=== PATIENT | male | born 1950 | race Caucasian/White ===

== ENCOUNTER 2020-02-03 17:00 | Inpatient (IN) | payer OTHER ==
[~2020-02-03] VITALS: Ht 177.8 cm; Wt 95.3 kg
[2020-02-03] MEDS ORDERED: PLAQUENIL200 MG PO (17:59)
[2020-02-03] MEDS ORDERED: ACCUPRIL40 MG PO (18:00)
[2020-02-03] MEDS ORDERED: BAYER CHEWABLE81 MG PO (18:02)
[2020-02-03] MEDS ORDERED: FLOMAX0.4 MG PO (18:03)
[2020-02-03] MEDS ORDERED: BYSTOLIC10 MG PO (18:03)
[2020-02-03 18:12] LABS: HEMATOCRIT 41.4 % (42.0-52.0); MCH 30.3 pg (26.0-34.0); MCHC 33.8 g/dL (28.0-37.0); MCV 89.7 fL (80.0-100.0); RBC 4.62 mil/uL (4.50-6.00); RDW 12.6 % (10.5-14.5); WBC 7.2 thou/uL (4.0-11.0)
[2020-02-03 18:25] LABS: CALCIUM 8.6 mg/dL (8.5-10.1); POTASSIUM 3.9 mmol/L (3.5-5.1)
[2020-02-03 18:32] LABS: ALBUMIN 3.3 g/dL (3.4-5.0); TOTAL BILIRUBIN 0.3 mg/dL (<0.1-1.0); TOTAL PROTEIN 6.7 g/dL (6.4-8.2)
--- NOTE | 2020-02-03 19:22 | NUR ---
DIRECT ADMIT FROM [facility] FOR TIGHTNESS OF CHEST. ADMITTED BY DR PARKS FOR CHEST PAIN. PATIENT ARRIVED WITH HEPARIN DRIP. HEPARIN STOPPED.PER REPORT FROM SHARON VILLANUEVA FOR [facility] PT WAS GIVEN HEPARIN BOLUS AND DRIP AT [facility]. 4 BABY ASA, AND 1 INCH NITRO PASTE. PATIENT TEST FOR COVID-19 AT [facility] ON 02/01/20. ALERT X4 FROM HOME WITH NIDA. PT DENIES CHEST PAIN, PT C/O OF SLIGHT SHORTNESS OF BREATH. UP AB [place] IN ROOM.CONTINENT OF BLADDER LAST BM 02/01/20. TOLERATING DIET. NSR ON TELE. FLUIDS ADMINISTERED ORDERED. CONSENTS SIGNED. ADMISSION ASSESMENT AND HISTORY COMPLETED. HOME MEDS RECONSILED. REPORT GIVEN TO NIGHT NURSE.
[2020-02-03 19:46] VITALS: BP 104/58
[2020-02-04] VITALS (8 sets, daily range): BP systolic 96–121; BP diastolic 60–79
--- NOTE | 2020-02-04 04:05 | NUR ---
Pt. slept fair during the night. Denies any chest pain.Tolerating room air well with O2 sat in the upper 90's.Reported shortness of breath with exertion. Up ad trudy in room with steady gait. Cardiology consult called to answering service last night. Continue on isolation to R/O COVID 19. Afebrile. Will continue to monitor.
[2020-02-04 06:32] LABS: HEMATOCRIT 36.3 % (42.0-52.0); HEMOGLOBIN 12.4 gm/dL (14.0-18.0); MCH 30.5 pg (26.0-34.0); MCHC 34.1 g/dL (28.0-37.0); MCV 89.4 fL (80.0-100.0); RBC 4.05 mil/uL (4.50-6.00); RDW 12.6 % (10.5-14.5); WBC 6.5 thou/uL (4.0-11.0)
[2020-02-04 06:43] LABS: CALCIUM 8.1 mg/dL (8.5-10.1); CREATININE 0.8 mg/dL (0.7-1.3)
--- NOTE | 2020-02-04 15:51 | NUR ---
PT ASSUMED AT 0700, PT AWAKE AND PLEASANT. ALERT AND OREINTED X4, NO SIGNS OF DISTRESS NOTED. PT DENIES ANY CHEST PAIN, ASSESMMENT COMPLETED. PT DENIES ANY NEEDS, CALL LIGHT IN REACH, BED AT LOWEST LEVEL WITH ALARM ON. WILL CONTINUE TO MONITOR.
--- NOTE | 2020-02-05 03:04 | NUR ---
SPOKE WITH MANAGER EDUCATION AT [facility]. NO RESULTS YET TO STATUS OF COVID-19 SWAB. DID PROVIDE TELEPHONE NUMBER AND FAX NUMBER TO CONTACT US SHOULD RESULTS BE CALLED TO THEIR LAB INSTEAD OF [facility].
[2020-02-05 04:55] VITALS: BP 127/80
--- NOTE | 2020-02-05 05:53 | NUR ---
PT MAKING SLOW PROGRESS TOWARDS GOALS. ON ROOM AIR THROUGHOUT THE NIGHT. DENIES ANY SOA WHILE BEING UP TO THE TOILET. HAS DENIED ANY CHEST PAIN OVERNIGHT. "BUT THERE IS SOMETHING THERE, I CAN FEEL IT THAT SOMETHING JUST DOESN'T FEEL RIGHT." ENCOURAGED TO CALL WITH ANY AXIETY OR ANY SENSE OF IMPENDING DOOM.
[2020-02-05 08:00] VITALS: BP 139/99
--- NOTE | 2020-02-05 09:33 | NUR ---
PT CARE ASSUMED AT 0700, PT ALERT AND OREINTED X4, DENIES CHEST PAIN, NAUSEA AND VOMITING. NO SIGNS OF DISTRESS NOTED. DYSPNEA WITH EXERTION. ASSESSMENT COMPLETED. PT EATING BREAKFAST AT THE MOMENT. DENIES ANY NEEDS. CALL LIGHT AND TABLE IN REACH. BED AT LOWEST LEVEL. WILL CONTINUE TO MONITOR.
[2020-02-05 09:58] LABS: CHOLESTEROL 80 mg/dL (<200); HDL CHOLESTEROL 24 mg/dL (>40); LDL CHOLESTEROL 42 mg/dL (<100); TC:HDL 3.3 Ratio (Not establshd); TRIGLYCERIDE 73 mg/dL (<150); VLDL 15 mg/dL (<40)
--- NOTE | 2020-02-05 11:16 | NUR ---
1030 [facility] laboratory called about pt COVID19 results, was told results not in yet and normally their results dont get in until 8-9 days
[2020-02-05 11:48] VITALS: BP 131/73
--- NOTE | 2020-02-05 16:32 | NUR ---
INITIAL ASSESSMENT: SW reviewed chart and spoke with attending physician. Pt was transferred to [facility] from [facility] due to NStemi/elevated troponin. Cardiology is consulted and following. Pt will need an echo/angio when COVID-19 screen is negative. Pt may need a cardiac cath. SW attempted to contact pt in room to obtain assessment info. Per chart, pt is alert/orientated x 4. Pt lives with his in [place]. NORAH is following to assist as needed with discharge planning.
[2020-02-05 17:11] VITALS: BP 144/71
[2020-02-05 19:25] VITALS: BP 154/87
[2020-02-06 05:21] VITALS: BP 128/79
--- NOTE | 2020-02-06 06:31 | NUR ---
PT MAKING PROGRESS TOWARDS GOALS. PTINITIALLY REPORTED 1/10 LEFT CHEST TIGHTNESS THAT OCCURED WITH ACITIVITY (UP TO USE THE BATHROOM). HE DID STATE THAT THE DISCOMFORT RECEEDS PROMPTLY WITH REST. "I JUST THINK THAT SOMETHING IS WRONG." HAS DENIED ANY SOA.
[2020-02-06 07:42] VITALS: BP 132/83
--- NOTE | 2020-02-06 11:06 | NUR ---
PT CARE ASSUMED AT 0700, PT ALERT AND ORIENTED X4, DENIES NAUSEA, VOMITING AND CHEST PAIN. PT COMPLAINS OF CHEST TIGHTNESS/PRESSURE WHEN UP TO THE BATHROOM. DR. PARKS MADE AWARE. PT DENIES ANY OTHER NEEDS AT THIS TIME. CALL LIGHT AND TABLE WITH REACH. BED TA LOWEST LEVEL. WILL CONTINUE TO MONITOR.
--- NOTE | 2020-02-06 12:01 | NUR ---
PT TRANSFERED TO ICU, ROOM 240. ALL BELONGINGS PACKED AND WITH PT.
[2020-02-06 12:07] VITALS: BP 136/73
--- NOTE | 2020-02-06 13:03 | NUR ---
SW reviewed chart and spoke with nursing and attending physician. Pt had COVID-19 test ordered yesterday. Pt was previously tested at [facility] on 01/31. SW notified by nursing that pt's results from [facility] are positive for COVID-19. Pt transferred to ICU. NORAH is following to assist as needed with discharge planning.
[2020-02-06 16:16] VITALS: BP 118/64
[2020-02-06 20:45] VITALS: BP 95/49
[2020-02-06 20:47] VITALS: BP 102/47
[2020-02-07 00:58] VITALS: BP 131/69
[2020-02-07 04:07] VITALS: BP 116/59
--- NOTE | 2020-02-07 04:55 | NUR ---
1900. PT ALERT AND ORIENTED. VSS WITH OCCASIONALLY SOFT PRESSURES. NO FEVER , NO NAUSEA OR VOMITING REPORTED. PT DENIES ANY CHEST PAIN OR SOB. VOIDING TO THE BATHROOM; STEADY GAIT. SR TO SB ON THE MONITOR WHEN ASLEEP. PT ALSO DESATS WHEN SLEEPING. PT HX OF SLEEP APNEA AND STATED, " MY TELLS ME I STOP BREATHING SOMETIMES WHEN SLEEPING." PT OTHERWISE DENIES ANY HX OF . O2 3L NC INITIATED. SATS MAINTAINED > 98. NO FURTHER ISSUE AT THIS TIME. ISOLATION FOR COVID+ MAINTAINED. UPDATE ON PATIENTS CONDITION LAST NIGHT. WILL CONTINUE TO FOLLOW POC.
[2020-02-07 06:05] LABS: HEMATOCRIT 29.7 % (42.0-52.0); HEMOGLOBIN 10.2 gm/dL (14.0-18.0); MCH 30.8 pg (26.0-34.0); MCHC 34.4 g/dL (28.0-37.0); MCV 89.7 fL (80.0-100.0); RBC 3.31 mil/uL (4.50-6.00); RDW 12.2 % (10.5-14.5); WBC 7.1 thou/uL (4.0-11.0)
[2020-02-07 06:18] LABS: CALCIUM 7.8 mg/dL (8.5-10.1); CREATININE 0.8 mg/dL (0.7-1.3); POTASSIUM 3.7 mmol/L (3.5-5.1)
[2020-02-07 08:56] VITALS: BP 116/55
[2020-02-07 12:46] VITALS: BP 108/63
--- NOTE | 2020-02-07 18:47 | NUR ---
ASSESSMENTS AND INTERVENTIONS DOCCUMENTED. NO MAJOR CHANGES THROUGH OUT SHIFT. PATIENT UP ADLIB NEEDING MINIMAL ASSISTANCE. PATIENT PROGRESSING TOWARDS GOALS EVIDENCE BY INCREASED MOBILITY AND APETITIE. CARDIOLOGY NOT INTERVENING AT THIS TIME.
[2020-02-07 20:50] VITALS: BP 113/62
[2020-02-08 00:14] VITALS: BP 138/72
[2020-02-08 04:25] VITALS: BP 162/84
--- NOTE | 2020-02-08 05:00 | NUR ---
ASSUMED PT CARE AT 1900. PT IS ALERT AND ORIENTED. PT IS LAYING IN BED. NO SIGN OF DISTRESS NOTED IN PT. DENIES ANY PAIN. PT IS STABLE. VITAL SIGNS STABLE. ASSESSMENT COMPLETED AND DOCUMENTED. ISOLATION IN PLACE. SCHEDULED MEDS ADMINISTERED TO PT. PT IS AFEBRILE. CONTINUE TO MONITOR PT. DENIES ANY FURTHER NEEDS AT THIS TIME.
[2020-02-08 05:28] LABS: HEMOGLOBIN 11.3 gm/dL (14.0-18.0); MCH 30.3 pg (26.0-34.0); MCHC 34.2 g/dL (28.0-37.0); MCV 88.7 fL (80.0-100.0); RBC 3.72 mil/uL (4.50-6.00); RDW 12.2 % (10.5-14.5); WBC 6.9 thou/uL (4.0-11.0)
[2020-02-08 05:36] LABS: CREATININE 0.8 mg/dL (0.7-1.3); POTASSIUM 3.8 mmol/L (3.5-5.1)
[2020-02-08 08:14] VITALS: BP 148/70
[2020-02-08] MEDS ORDERED: IMDUR 30 MG TAB30 M1 PO (11:00)
[2020-02-08] MEDS ORDERED: LIPITOR40 MG PO (11:00)
[2020-02-08] MEDS ORDERED: LEVAQUIN 750 M750 MG PO (11:01)
[2020-02-08 11:17] VITALS: BP 148/70
[2020-02-08 11:27] VITALS: BP 132/63
--- NOTE | 2020-02-08 11:29 | NUR ---
discussed during los, pt will dc home today and need to self quarantine. he asymptomatic of covid 19, which he tested positive for. follow up with cardiology in about 3 weeks. cm left message from bedside nurse. will cont following as needed for dc needs.
--- NOTE | 2020-02-08 12:33 | NUR ---
PT DC TO HOME WILL COURATIN AT HOME DISCHARGE INSTRUCTIONS GIVEN PER NURSING VERBALZIE UNDERSTANDING. 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 ALL BELONGING WITH PT PRIOR TO DISCHARGE. NO CONCERNS OR ISSUES NOTED AT THIS TIME
== END 2020-02-08 13:20 | disposition home or self-care (01) | DRG 177 ==
LOC: 3W 17:00 → ICU 02-06 12:39
PROVIDERS: Hospitalist; Internal Medicine Cardiovascular Disease; ADMIT Hospitalist
DX: U07.1 COVID-19 (principal); J12.89 Other viral pneumonia; I25.10 Atherosclerotic heart disease of native coronary artery without angina pectoris; R79.89 Other specified abnormal findings of blood chemistry; R07.9 Chest pain, unspecified; R06.02 Shortness of breath; I10 Essential (primary) hypertension; Z79.82 Long term (current) use of aspirin; Z79.899 Other long term (current) drug therapy; Z95.5 Presence of coronary angioplasty implant and graft; Z79.2 Long term (current) use of antibiotics
CPT/HCPCS: 10078; 10779; 10879

== ENCOUNTER → 2020-03-01 | Outpatient (CLI) | payer OTHER ==
[~2020-03-01] MED LIST: ACCUPRIL40 MG PO; BAYER CHEWABLE81 MG PO; BYSTOLIC10 MG PO; FLOMAX0.4 MG PO; IMDUR 30 MG TAB30 M1 PO; LEVAQUIN 750 M750 MG PO; LIPITOR40 MG PO; PLAQUENIL200 MG PO
== END ==
LOC: SJCVCIMAG 13:26
DX: I35.8 Other nonrheumatic aortic valve disorders (principal); R00.1 Bradycardia, unspecified; I25.10 Atherosclerotic heart disease of native coronary artery without angina pectoris; I10 Essential (primary) hypertension; E78.00 Pure hypercholesterolemia, unspecified; R53.83 Other fatigue; E78.5 Hyperlipidemia, unspecified; Z79.82 Long term (current) use of aspirin; Z79.899 Other long term (current) drug therapy; Z87.891 Personal history of nicotine dependence; Z95.5 Presence of coronary angioplasty implant and graft

== ENCOUNTER 2020-03-11 06:35 | Inpatient (IN) | payer OTHER ==
[~2020-03-11] VITALS: Ht 172.7 cm; Wt 93.0 kg
--- NOTE | ~2020-03-11 | H ---
[facility] [place] [address] HISTORY AND PHYSICAL Name: SARTHAK HILL Room #: REG GARRY Gallegos.#: [id number] Admission: 03/11/20 Attend Phys: Damaso Davidson MD, Discharge: Date of : 52 Report #: [id number] THIS REPORT FOR: cc: Kiko Millard MD,Damaso Rose MD, MD [facility] ~ CC: Kiko Darby MD DATE OF SERVICE: 03/11/2020 HISTORY OF PRESENT ILLNESS: The patient is a 69-year-old male well known to myself. He is admitted today for right and left heart catheterization. He had been diagnosed over a month ago with the COVID virus, was hospitalized here and then since tested negative x 2. He was not "very sick" with this and he has short time in the hospital, has done well since, but having some stable anginal symptoms. His tells a slightly different story that he is having more angina than he would admit to and has not had the energy that he once had, this is unrelated, appears to his prior infection. No fever or chills. He did have a slight bump in the troponin at his hospitalization last month, but we did not evaluate that further, wanted him to recover from the virus. He has been maintained on aspirin, atorvastatin, iron, Plaquenil, quinapril and Bystolic 20. PAST MEDICAL HISTORY: Positive for coronary artery disease, emergent stents placed to the circumflex in 2005, hypertension, hypercholesterolemia, DJD, vasectomy, a prior smoker. SOCIAL HISTORY: He is retired. He is . Prior tobacco. Prior alcohol, no drug use. FAMILY HISTORY: Positive for premature coronary artery disease. ALLERGIES: No known drug allergies. PHYSICAL EXAMINATION: VITAL SIGNS: Pulse was 70s, blood pressure 160/80s. HEENT: Eyes reveal xanthelasmas. Pharynx is clear. NECK: Shows preserved upstrokes without JVD or bruits. LUNGS: Slightly prolonged expiratory phase, but clear. CARDIOVASCULAR: Regular rate and rhythm, S1, S2. ABDOMEN: Soft. No HSM or abdominal bruit. EXTREMITIES: Reveal diminished pulses, but intact. NEUROLOGIC: Nonfocal. SKIN: Warm and dry. There are some eczematous changes on his face with slight malar rash noted. No ulcers. [facility] [address] [place] [address] HISTORY AND PHYSICAL Name: SARTHAK HILL Alvaro Room #: HARRY CASTAÑEDA Alonzo#: [id number] Admission: 03/11/20 Attend Phys: Damaso Davidson MD, Discharge: Date of : 52 Report #: [id number] ASSESSMENT: 1. Coronary artery disease, cardiac catheterization today reveals significant 3-vessel coronary artery disease. He is with significant proximal calcification. He is going to be best served with bypass surgery for revascularization. 2. Hypertension. 3. Hypercholesterolemia. 4. Degenerative joint disease. 5. Status post COVID infection with negative tests x 2. 6. Chronic obstructive pulmonary disease with prior tobacco use. RECOMMENDATIONS AND PLAN: The patient will be transferred to CCU. We will obtain a stent. We will obtain carotid Doppler and proceed on with revascularization by bypass in the next day or two. CV surgical consultation. I have discussed with Dr. Adler and the patient's . Thank you for asking me to assist in the care of this patient. By: 1150 [id number] Damaso Davisdon MD, FACC /nt
[2020-03-11 07:24] VITALS: BP 156/75
[2020-03-11] MEDS ORDERED: ASA81BEC PO (07:33)
[2020-03-11] MEDS ORDERED: LIPITOR20 MG PO (07:33)
[2020-03-11] MEDS ORDERED: PLAQUENIL200 MG PO (07:34)
[2020-03-11] MEDS ORDERED: ACCUPRIL40 MG PO (07:34)
[2020-03-11] MEDS ORDERED: FERGON270 MG PO (07:34)
[2020-03-11] MEDS ORDERED: BYSTOLIC10 MG PO (07:35)
[2020-03-11 12:45] VITALS: BP 139/119
--- NOTE | 2020-03-11 13:28 | HC ---
[facility] [place] [address] CONSULTATION Name: SARTHAK HILL Room #: 206-P ADM IN M.R.#: [id number] Admission: 03/11/20 Attend Phys: Damaso Davidson MD, Discharge: Date of : 52 Report #: [id number] THIS REPORT FOR: cc: Kiko Millard MD,Kiko Adler,Juan Salinas MD ~ CC: Kiko Davidson DATE OF SERVICE: 03/11/2020 We were asked to see the patient by Dr. Davidson. HISTORY OF PRESENT ILLNESS: The patient is a 69-year-old who had coronavirus. The patient was hospitalized with progressive chest pain and shortness of breath. He also had an elevated troponin. The patient had fever and fatigue. He was treated for COVID-19 with Plaquenil and azithromycin and since treatment has had 2 negative tests, the last testing approximately 2 weeks ago according to the patient. Today, the patient has a cardiac catheterization that shows important LAD and circumflex stenosis. The patient has a previous stent in the circumflex that has 80% lesion and that there is also 90% LAD stenosis, right coronary has trivial disease. Left ventricular function is satisfactory. PAST MEDICAL HISTORY: Significant for hypertension. The patient was also treated for hyperlipidemia. He is a former smoker. MEDICATIONS: Include aspirin, atorvastatin, iron, hydroxychloroquine, quinapril, Bystolic. ALLERGIES: None known. SOCIAL HISTORY: As mentioned, former smoker. The patient is retired, lives with his in the [facility]. REVIEW OF SYSTEMS: GENERAL: As mentioned, has some fatigue and shortness of breath, previous fever with the COVID. Deaf in the right ear. RESPIRATORY: Short of breath with the COVID, better now. CARDIAC: Chest heaviness with COVID, better now. No palpitations. GASTROINTESTINAL: No nausea, vomiting, or diarrhea. GENITOURINARY: No urgency, frequency, or blood. MUSCULOSKELETAL: No bone or joint pain. SKIN: No rash or infection. NEUROLOGIC: No motor or sensory dysfunction. [facility] [address] [place] [address] CONSULTATION Name: SARTHAK HILL Alvaro Room #: 206-[facility] IN M.R.#: [id number] Admission: 03/11/20 Attend Phys: Damaso Davidson MD, Discharge: Date of : 52 Report #: [id number] ENDOCRINE: No hot or cold intolerance. No goiter, no tremor. HEMATOLOGIC: No bruisability or bleeding. PHYSICAL EXAMINATION: VITAL SIGNS: Blood pressure 151/73, heart rate 62, O2 sat 93 on room air. HEENT: No scleral icterus, no arcus. NECK: No mass, no bruit. CHEST: Clear to auscultation. HEART: Rhythm regular. ABDOMEN: Soft. EXTREMITIES: No clubbing, cyanosis or edema. VASCULAR: No obvious saphenous vein problems, 2+ dorsalis pedis pulses bilaterally. NEUROLOGIC: No motor or sensory dysfunction. MUSCULOSKELETAL: No bone or joint asymmetry or deformity. PSYCHIATRIC: Shows insight into problem. ASSESSMENT: The patient has severe left anterior descending and circumflex coronary artery disease with preserved ventricular function. Risks and details of the surgery for this were discussed. Risks include but are not limited to bleeding, infection, anesthesia risks, heart and lung problems, stroke and . Options and alternatives were reviewed. The patient understands all of this and wishes to proceed. We will arrange for surgery later this week. Thank you for the consult. <ELECTRONICALLY SIGNED> By: Juan Adler MD 03/11/20 1328 1149 1250 Juan Adler MD /nt
[2020-03-11 13:58] LABS: ABSOLUTE NEUTROPHILS 3.3 thou/uL (1.4-8.2); BASOPHILS 0.9 % (0.0-2.0); EOSINOPHILS 5.1 % (0.0-3.0); HEMATOCRIT 39.4 % (42.0-52.0); HEMOGLOBIN 13.4 gm/dL (14.0-18.0); LYMPHOCYTES 41.2 % (24.0-44.0); MCH 31.1 pg (26.0-34.0); MCHC 34.1 g/dL (28.0-37.0); MCV 91.1 fL (80.0-100.0); MONOCYTES 8.8 % (1.0-8.0); PLATELET COUNT 255 thou/uL (150-400); RBC 4.32 mil/uL (4.50-6.00); RDW 13.5 % (10.5-14.5); WBC 7.5 thou/uL (4.0-11.0)
[2020-03-11 14:13] LABS: CALCIUM 8.5 mg/dL (8.5-10.1); CREATININE 0.9 mg/dL (0.7-1.3); POTASSIUM 3.3 mmol/L (3.5-5.1)
[2020-03-11 14:16] LABS: APTT 27.8 Seconds (24.5-32.8); INR 1.1; PROTIME 10.9 Seconds (9.3-11.4)
[2020-03-11 14:21] LABS: ALBUMIN 3.8 g/dL (3.4-5.0); TOTAL BILIRUBIN 0.7 mg/dL (<0.1-1.0); TOTAL PROTEIN 7.5 g/dL (6.4-8.2)
--- NOTE | 2020-03-11 15:06 | NUR ---
PT ADMITED FROM [facility]. ADMISSION HX AND ASSESSMENT COMPLETED. VSS. RIGHT GROIN INCISION C/D/I. NO HEMATOMA NOTED. DR. WHITT CONSULTED FOR CABG ON WEDNESDAY. NEW ORDERS NOTED. WILL CONTINUE TO MONITOR.
[2020-03-11 16:43] LABS: URINE BILIRUBIN NEGATIVE (Negative); URINE BLOOD NEGATIVE (Negative); URINE CLARITY CLEAR; URINE COLOR YELLOW; URINE GLUCOSE-RANDOM* NEGATIVE (Negative); URINE KETONES NEGATIVE (Negative); URINE LEUKOCYTES-REFLEX NEGATIVE (Negative); URINE NITRITE-REFLEX NEGATIVE (Negative); URINE PROTEIN (DIPSTICK) NEGATIVE (Negative); URINE SPECIFIC GRAVITY 1.015 (1.005-1.035); URINE UROBILINOGEN 0.2 E.U./dl (0.2-1.0)
--- NOTE | 2020-03-11 17:47 | CATHLAB ---
[facility] [place] [address] INVASIVE PROCEDURE REPORT Name: SARTHAK HILL Room #: 206-P ADM IN M.R.#: [id number] Admission: 03/11/20 Attend Phys: Damaso Davidson MD, Discharge: Date of : 52 Report #: [id number] THIS REPORT FOR: cc: Kiko Millard MD, Curtis MD Mancuso, Gerald M. MD [facility] ~ APPROVED REPORT Study performed: 03/11/2020 07:49:27 Patient Details Patient Status: Out-Patient Room #: The patient is a 69 year-old male Event Personnel Damaso Davidson Electrical Parts Reconditioner, Apoorva Coppola RN RN, Tracy Prajapati RTR, Pasha Rocha Roberta Monitor Procedures Performed Art Access - R femoral artery* Franklyn Access - R femoral vein Right and Left Heart Cath w/or w/o Coronarie [id number] [facility] Aortogram Abdominal Peripheral Angio 928328 Hemostasis w/ Mynx 56691 Initial Mod Sed Same Phys/QHP Gr5y 927333 01160 Mod Sed Same Phys/QHP Ea 483644 Indication Chest pain Procedure Narrative The Right Groin^ was infiltrated with subcutaneous anesthesia. A Right Heart Catheterization was performed with a 7 Fr. Campus-Eben catheter and pressure were recorded. Cardiac outputs were obtained by the Thermal Dilution method. A PINNACLE 6FR Sheath #[id number] sheath was inserted into the RFA 6F^. Coronary angiography was performed using coronary diagnostic catheters. The right coronary system was accessed and visualized with a JR4 catheter. The left coronary system was accessed and visualized with a JL4 catheter. The left ventricle was accessed and visualized with a STR PIG catheter. Left ventriculogram was performed in 30 degree projection. Hemostasis was obtained with manual pressure following sheath removal without any complications. The patient tolerated the procedure well and there were no complications associated with the procedure. There was no hematoma. VENOUS HEMOSTASIS MANUAL PRESSURE [facility] [place] [address] INVASIVE PROCEDURE REPORT Name: SARTHAK HILL Room #: 206-P [facility] IN ..#: [id number] Admission: 03/11/20 Attend Phys: Damaso Davidson, Discharge: Date of : 52 Report #: [id number] Intraoperative Conscious Sedation Sedation start time: 835 Case end Time: 924 Fentanyl 50 mcg Versed 2 mg Fluoro Time: 3.48 minutes Dose: DAP 4896.50 cGycm2 486 mGy Contrast Type and Amount: Omnipaque 105 ml Hemodynamics The right atrial mean pressure is 14 mmHg. The right ventricular pressure is 42/10 mmHg. The pulmonary artery pressure is 49/2 mmHg with a mean of 27 mmHg. The mean pulmonary capillary wedge pressure is 22 mmHg. The aortic pressure is 158/76 mmHg with a mean of 109 mmHg. The left ventricular pressure is 175/4 mmHg with a mean of mmHg. The left ventricular end diastolic pressure is 29 mmHg. The cardiac output using thermo method is 5.35 L/min. The cardiac index using thermo method is 2.59 L/min/m2. Conclusion 1. Left main calcified widely patent giving rise to LAD and circumflex. #2 the LAD is complex anatomy with an eccentric proximal 8090% lesion heavily calcified mid vessel lesion which is 95% at a diagonal takeoff. The LAD and diagonal are then fairly well preserved distal to this. #3 eccentric proximal lesion and heavily calcified circumflex artery with a 90% proximal and then a mid OM branch of 90% with 1 large preserved OM distal to this. In between these lesions are previously placed stent which has mild restenosis. #4 normal left ventricular size and systolic function EF 55 to 60% #5 abdominal aortogram with mild disease no aneurysm. Wide patency noted in the iliac system. Recommendations and plan: Continue aggressive risk factor modification patient transferred to CCU has anginal symptoms which persists. Will proceed with cardiovascular surgical consultation for revascularization by bypass. Significant proximal calcification high-grade lesions make this difficult for PCI stent procedure. <ELECTRONICALLY SIGNED> By: Damaso Davidson MD, FACC 03/11/201744 44 44 Damaso Davidson MD, FACC /INF
--- NOTE | 2020-03-11 17:50 | 2DMMODE ---
[facility] [place] [address] 2 D/M-MODE ECHOCARDIOGRAM Name: SARTHAK HILL Alvaro Room #: 206-P ADM IN M.R.#: [id number] Admission: 03/11/20 Attend Phys: Damaso Davidson MD, Discharge: Date of : 52 Report #: [id number] THIS REPORT FOR: cc: Kiko Millard MD, Curtis MD Mancuso, Gerald M. MD [facility] ~ APPROVED REPORT Study performed: 03/11/2020 15:58:32 EXAM: Limited 2D, Doppler, and color-flow Echocardiogram Patient Location: Bedside Room #: 206 Status: routine BSA: 2.07 HR: 60 bpm BP: 139/119 mmHg Other Information Study Quality: Adequate Indications CAD Pre-op 2D Dimensions IVSd: 13.72 (7-11mm) LVDd: 44.26 mm PWd: 13.64 (7-11mm) LVDs: 29.60 (25-40mm) IVC: 18.00 mm Aortic Valve AoV Peak Renan.: 1.18 m/s AO Peak Gr.: 7.03 mmHg LVOT Max P.32 mmHg LVOT Max V: 0.91 m/s AI Vmax: 3.83 m/s AI [place]: 1.38 m/s2 AI PHT: 804.82 ms Tricuspid Valve RAP Estimate: 5.00 mmHg Left Ventricle The left ventricle is normal size. Mild to moderate concentric left [facility] [address] [place] [address] 2 D/M-MODE ECHOCARDIOGRAM Name: SARTHAK HILL Room #: [facility]- ADM IN M.R.#: [id number] Admission: 03/11/20 Attend Phys: Damaso Davidson, Discharge: Date of : 52 Report #: [id number] ventricular hypertrophy. The left ventricular systolic function is normal. The left ventricular ejection fraction is within the normal range. LVEF is 60-65%. Right Ventricle The right ventricle is normal size. The right ventricular systolic function is normal. Atria The left atrium size is normal. The right atrium size is normal. Aortic Valve The aortic valve is normal in structure. Mild aortic regurgitation. There is no aortic valvular stenosis. Mitral Valve The mitral valve is normal in structure. There is no mitral valve regurgitation noted. No evidence of mitral valve stenosis. Tricuspid Valve The tricuspid valve is normal in structure. There is no tricuspid valve regurgitation noted. Unable to assess PA pressure. Great Vessels The aortic root is normal in size. IVC is normal in size and collapses >50% with inspiration. Pericardium There is no pericardial effusion. <Conclusion> The left ventricle is normal size. Mild to moderate concentric left ventricular hypertrophy. LVEF is 60-65%. The right ventricle is normal size. The left atrium size is normal. Mild aortic regurgitation. There is no mitral valve regurgitation noted. There is no tricuspid valve regurgitation noted. Unable to assess PA pressure. [facility] [address] [place] [address] 2 D/M-MODE ECHOCARDIOGRAM Name: LIZSARTHAK John Room #: 206-P [facility] IN M.R.#: [id number] Admission: 03/11/20 Attend Phys: Damaso Davidson, Discharge: Date of : 52 Report #: [id number] The aortic root is normal in size. There is no pericardial effusion. <ELECTRONICALLY SIGNED> By: Damaso Davidson MD, FACC 03/11/201747 47 47 Damaso Davidson MD, FACC /INF
[2020-03-11 18:00] VITALS: BP 158/81
[2020-03-11 19:57] VITALS: BP 153/85
[2020-03-12 03:07] LABS: GLYCOHEMOGLOBIN (HGB A1C) 5.7 % (4.8-5.6)
[2020-03-12] MEDS ORDERED: IMDUR 30 MG TAB30 M1 PO (07:18)
== END 2020-03-11 21:50 | disposition home or self-care (01) | DRG 286 ==
LOC: CATH 06:35 → 2N 13:05
PROVIDERS: Physician Assistant; ADMIT Internal Medicine Cardiovascular Disease
DX: I25.10 Atherosclerotic heart disease of native coronary artery without angina pectoris (principal); U07.1 COVID-19; I10 Essential (primary) hypertension; E78.5 Hyperlipidemia, unspecified; J44.9 Chronic obstructive pulmonary disease, unspecified; E78.00 Pure hypercholesterolemia, unspecified; M19.90 Unspecified osteoarthritis, unspecified site; Z98.52 Vasectomy status; Z82.49 Family history of ischemic heart disease and other diseases of the circulatory system
CPT/HCPCS: 10081

== ENCOUNTER 2020-03-14 06:34 | Inpatient (IN) | payer OTHER ==
[~2020-03-14] VITALS: Ht 172.7 cm; Wt 92.5 kg
[~2020-03-14 06:34] MED LIST changes: +ASA81BEC PO; +FERGON270 MG PO; +LIPITOR20 MG PO
[2020-03-18] MEDS ORDERED: QUINAPRIL 20 MG20 MG PO (10:43)
[2020-03-18] MEDS ORDERED: PLAQUENIL200 MG PO (10:43)
[2020-03-18] MEDS ORDERED: ASPIRIN325 PO (10:43)
[2020-03-18] MEDS ORDERED: LIPITOR 20 MG T20 M1 PO (10:44)
[2020-03-18] MEDS ORDERED: FLOMAX0.4 MG PO (10:44)
[2020-03-18] MEDS ORDERED: BYSTOLIC20 MG PO (10:44)
[2020-03-18] MEDS ORDERED: NOVAFERRUM 5050 MG PO (10:45)
[2020-03-18] MEDS ORDERED: ISOSORBIDE DINI30 MG PO (10:46)
[2020-03-18] MEDS ORDERED: MUPIROCIN1 GM NARES (10:48)
[2020-03-22] VITALS (22 sets, daily range): BP systolic 101–141; BP diastolic 50–87
--- NOTE | 2020-03-22 07:35 | NUR ---
PT REQUESTING TO TAKE OWN MEDICATION WHILE IN HOSP DR WHITT AWARE AND MEDICATIONS TAKEN TO PHARMACY DENTURES AND GLASSES IN PT'S RED BAG.
[2020-03-22 12:26] LABS: MCH 31.2 pg (26.0-34.0); MCHC 34.2 g/dL (28.0-37.0); MCV 91.2 fL (80.0-100.0); RBC 3.07 mil/uL (4.50-6.00); RDW 13.6 % (10.5-14.5)
[2020-03-22 12:47] LABS: HEMOGLOBIN 9.6 gm/dL (14.0-18.0)
[2020-03-22 12:53] LABS: PROTIME 14.9 Seconds (9.3-11.4)
[2020-03-22 12:54] LABS: APTT 27.8 Seconds (24.5-32.8); FIBRINOGEN 165.7 mg/dL (210-360); INR 1.5
[2020-03-22 13:02] LABS: POC BE 1 mmol/L (-2.0 to +3.0); POC CA IONIZED 3.9 mg/dL (4.5-5.3); POC GLUCOSE 155 mg/dL (70-99); POC HCO3 24.9 mmol/L (22.0-26.0); POC HEMOGLOBIN 8.5 g/dL (14.0-18.0); POC POTASSIUM 5.4 mmol/L (3.5-5.1); POC SODIUM 133 mmol/L (136-145); POC pCO2 36.7 mmHg (35.0-45.0); POC pH 7.439 (7.360-7.450)
[2020-03-22 13:02] LABS: POC BE 0 mmol/L (-2.0 to +3.0); POC CA IONIZED 4.3 mg/dL (4.5-5.3); POC GLUCOSE 167 mg/dL (70-99); POC HEMOGLOBIN 9.2 g/dL (14.0-18.0); POC POTASSIUM 5.4 mmol/L (3.5-5.1); POC SODIUM 135 mmol/L (136-145); POC pCO2 43.7 mmHg (35.0-45.0); POC pH 7.366 (7.360-7.450)
[2020-03-22 13:02] LABS: POC BE 1 mmol/L (-2.0 to +3.0); POC CA IONIZED 4.5 mg/dL (4.5-5.3); POC GLUCOSE 147 mg/dL (70-99); POC HCO3 25.4 mmol/L (22.0-26.0); POC HEMOGLOBIN 10.5 g/dL (14.0-18.0); POC POTASSIUM 4.8 mmol/L (3.5-5.1); POC SODIUM 136 mmol/L (136-145); POC pCO2 38.3 mmHg (35.0-45.0)
[2020-03-22 13:03] LABS: POC BE 1 mmol/L (-2.0 to +3.0); POC CA IONIZED 4.7 mg/dL (4.5-5.3); POC GLUCOSE 115 mg/dL (70-99); POC HCO3 25.9 mmol/L (22.0-26.0); POC HEMOGLOBIN 10.5 g/dL (14.0-18.0); POC POTASSIUM 4.6 mmol/L (3.5-5.1); POC SODIUM 136 mmol/L (136-145); POC pCO2 40.7 mmHg (35.0-45.0); POC pH 7.411 (7.360-7.450)
[2020-03-22 13:03] LABS: POC BE -3 mmol/L (-2.0 to +3.0); POC CA IONIZED 4.2 mg/dL (4.5-5.3); POC GLUCOSE 170 mg/dL (70-99); POC HCO3 23.1 mmol/L (22.0-26.0); POC HEMOGLOBIN 9.9 g/dL (14.0-18.0); POC POTASSIUM 5.1 mmol/L (3.5-5.1); POC SODIUM 134 mmol/L (136-145); POC pH 7.348 (7.360-7.450)
[2020-03-22 13:03] LABS: POC BE -1 mmol/L (-2.0 to +3.0); POC CA IONIZED 4.5 mg/dL (4.5-5.3); POC GLUCOSE 175 mg/dL (70-99); POC HCO3 26.3 mmol/L (22.0-26.0); POC HEMOGLOBIN 10.9 g/dL (14.0-18.0); POC POTASSIUM 5.3 mmol/L (3.5-5.1); POC SODIUM 136 mmol/L (136-145); POC pCO2 62.4 mmHg (35.0-45.0); POC pH 7.232 (7.360-7.450)
[2020-03-22 13:03] LABS: POC BE 0 mmol/L (-2.0 to +3.0); POC CA IONIZED 4.7 mg/dL (4.5-5.3); POC GLUCOSE 159 mg/dL (70-99); POC HCO3 25.4 mmol/L (22.0-26.0); POC HEMOGLOBIN 8.8 g/dL (14.0-18.0); POC POTASSIUM 4.2 mmol/L (3.5-5.1); POC SODIUM 137 mmol/L (136-145); POC pCO2 41.7 mmHg (35.0-45.0); POC pH 7.392 (7.360-7.450)
[2020-03-22 13:03] LABS: POC BE 0 mmol/L (-2.0 to +3.0); POC CA IONIZED 4.5 mg/dL (4.5-5.3); POC GLUCOSE 136 mg/dL (70-99); POC HCO3 24.5 mmol/L (22.0-26.0); POC HEMOGLOBIN 9.5 g/dL (14.0-18.0); POC POTASSIUM 3.6 mmol/L (3.5-5.1); POC SODIUM 139 mmol/L (136-145); POC pCO2 39.6 mmHg (35.0-45.0); POC pH 7.399 (7.360-7.450)
[2020-03-22 13:51] LABS: HCO3 22.4 mmol/L (22.0-26.0); PCO2 36.7 mmHg (35.0-45.0); pH 7.403 (7.360-7.450); sO2 97.2 % (92.0-98.0)
--- NOTE | 2020-03-22 14:06 | NUR ---
PT ARRIVED TO ICU FROM OR AT 1325 WITH NURSING STAFF, ANETHSTESIA, SURGEON AND PA. PLACED OM MONITOR AND VIGILANCE. PM OFF. PROPOFOL GTT FOR VENT MANAGEMENT PER BELKYS. CT TO SUCTION AND JESSICA HUGGER APPLIED. WAITING FOR MEDS FROM PHARMACY.
[2020-03-22 14:18] LABS: HEMATOCRIT 29.5 % (42.0-52.0); HEMOGLOBIN 10.1 gm/dL (14.0-18.0); MCH 31.2 pg (26.0-34.0); MCHC 34.2 g/dL (28.0-37.0); MCV 91.3 fL (80.0-100.0); RBC 3.23 mil/uL (4.50-6.00); RDW 13.7 % (10.5-14.5); WBC 16.6 thou/uL (4.0-11.0)
[2020-03-22 14:23] LABS: CALCIUM 7.6 mg/dL (8.5-10.1); MAGNESIUM 2.4 mg/dL (1.8-2.4); POTASSIUM 3.7 mmol/L (3.5-5.1)
[2020-03-22 14:30] LABS: APTT 28.1 Seconds (24.5-32.8); INR 1.2; PROTIME 12.3 Seconds (9.3-11.4)
[2020-03-22 17:14] LABS: BE(vivo) -4.3 mmol/L (-2 to +3); HCO3 19.9 mmol/L (22.0-26.0); PCO2 33.6 mmHg (35.0-45.0); PO2 105.7 mmHg (80.0-100.0); sO2 97.9 % (92.0-98.0)
[2020-03-22 18:25] LABS: CALCIUM 7.9 mg/dL (8.5-10.1); POTASSIUM 3.6 mmol/L (3.5-5.1)
--- NOTE | 2020-03-22 19:12 | O ---
[facility] [place] [address] OPERATIVE REPORT Name: SARTHAK HILL Room #: 250-P ADM IN M.R.#: [id number] Admission: 03/22/20 Attend Phys: Juan Adler MD Discharge: Date of : 52 Report #: [id number] THIS REPORT FOR: cc: Tato Darby James L. DO Forman,Juan Salinas MD ~ CC: Tato Adler DATE OF SERVICE: 03/22/2020 PREOPERATIVE DIAGNOSIS: Coronary artery disease. POSTOPERATIVE DIAGNOSIS: Coronary artery disease. OPERATION: Coronary artery bypass x 4 including left internal mammary artery to left anterior descending artery, saphenous vein to diagonal, first marginal, and second marginal arteries and endoscopic harvest, left greater saphenous vein. SURGEON: Juan Adler MD MUTUAL FUNDS AGENT: BOOM Trivedi. ANESTHESIA: General. INDICATIONS: The patient is a 69-year-old with a recent history of the COVID in January. The patient has recovered from this and received a cardiac evaluation for chest pain. This shows important LAD and circumflex lesions. The right coronary had trivial disease. Left ventricular function is satisfactory. FINDINGS AND TECHNIQUE: After general anesthesia was established, saphenous vein was harvested using an endoscopic approach and prepared for use as a conduit. Exposure was obtained through median sternotomy. Left internal mammary artery was harvested from chest wall. Pericardial well was made. Cannulation sutures were placed. Heparin was given. Aorta was cannulated. Right atrium was cannulated. Cardioplegia needle was positioned in the aortic root. Retrograde cardioplegic catheter was placed in coronary sinus. Cardiopulmonary bypass was established. The aorta was cross clamped. Antegrade and retrograde cardioplegia were given. Ice was poured in the pericardial well. The heart was stopped. During electromechanical arrest, the distal anastomoses were performed and end-to-side anastomosis was made between vein and the large second marginal artery. Cold cardioplegia was given. The same segment of vein was sewn in [facility] [address] [place] [address] OPERATIVE REPORT Name: SARTHAK HILL Alvaro Room #: [address] [place] [address] IN .R.#: [id number] Admission: 03/22/20 Attend Phys: Juan Adler MD Discharge: Date of : 52 Report #: [id number] [id number] fashion to the first marginal artery. Cold cardioplegia was given. The same segment of vein was sewn in [id number]-pu-[id number] fashion to the diagonal artery before it bifurcated. Cold cardioplegia was given. Left internal mammary artery was sewn in end-to-side fashion to left anterior descending artery. The patency of this vessel was checked with the temperature technique and the Doppler. Cold cardioplegia was given. One proximal anastomosis was performed. When this was complete, warm retrograde cardioplegia was given followed by warm continuous blood to the coronary sinus. When this infusion was complete, the crossclamp was removed, de-airing maneuvers were performed. The anastomoses were inspected and found to be satisfactory. As the patient warmed, nice cardiac activity resumed, chest tubes and pacing wires were placed, a marker was placed around the proximal anastomoses. When the patient was warmed, she was weaned from cardiopulmonary bypass. Venous cannula was removed. Protamine was given, the aortic cannula was removed. Flows were measured in the bypass grafts. When hemostasis was satisfactory, chest was irrigated with antibiotic solution and closed in the usual fashion. The patient was taken to the Intensive Care Unit in good condition having tolerated the procedure well. All counts reported as correct. <ELECTRONICALLY SIGNED> By: Juan Adler MD 03/22/20 1912 1548 1602 Juan Adler MD /nt
--- NOTE | 2020-03-22 21:18 | NUR ---
Care assumed at 1900. Pt alert, oriented, c/o of pain between upper shoulder blades and lower neck which he rates 8/10. Sternal TAYLA drsg patent, has < 0.5 cm area of red drainage at uppermost end of drsg; inspected this with day shift nurse and area has not changed since admission to ICU. Mediastinal CTs x2 and left plural CT x1 to -20 cm H2O, no air leak or crepitus. Pt on 4 L O2 per canula, O2 sat 98 to [address]%. [address]. Adler here to see pt around 1900; IVPB acetaminophen ordered for pain. Pt repositioned for comfort. Urine output remains > 30 cc/hr and monitor remains sinus rhythm without ectopy.
[2020-03-23] VITALS: BP 119/53
[2020-03-23 01:00] VITALS: BP 126/59
[2020-03-23 02:00] VITALS: BP 119/61
[2020-03-23 03:00] VITALS: BP 119/58
[2020-03-23 04:00] VITALS: BP 128/59
[2020-03-23 04:57] LABS: HEMATOCRIT 31.3 % (42.0-52.0); HEMOGLOBIN 10.5 gm/dL (14.0-18.0); MCH 30.7 pg (26.0-34.0); MCHC 33.4 g/dL (28.0-37.0); MCV 91.8 fL (80.0-100.0); RBC 3.41 mil/uL (4.50-6.00); RDW 13.6 % (10.5-14.5); WBC 16.9 thou/uL (4.0-11.0)
[2020-03-23 05:22] LABS: CALCIUM 7.8 mg/dL (8.5-10.1); CREATININE 0.8 mg/dL (0.7-1.3); POTASSIUM 3.1 mmol/L (3.5-5.1)
--- NOTE | 2020-03-23 05:56 | NUR ---
Pt progressing toward goals. Monitor remains sinus rhythm without ectopy. SBP remains < 150 with Cardene gtt; a beginning of shift Cardene at 15 mg/hr but able to titrate down to 5 mg/hr. PA pressures 27-32/8-12, CO 7.5-8.5, CI 3.0- 4.1, SVR 655-780. Pain adequately controlled with 25-50 mcg Fentanyl IVP q2-3 hours prn and scheduled IV Acetamenophen. Pt initially on 4 L nasal canula; able to titrate down to 2L wit sat > 93%. Blood sugar kept between 100-150 with insulin gtt. Urine output 600cc this shift. Taking clear liquids without nausea.
--- NOTE | 2020-03-23 11:15 | NUR ---
DR. WHITT HERE. UPDATE GIVEN. NO NEW ORDERS. PT FEELING SICK TO HIS STOMACH. SALINE CRACKER , 7UP AND ZOFRAN GIVEN WITH GOOD RESULTS.
--- NOTE | 2020-03-23 17:45 | NUR ---
CALLED DR. WHITT. RE SBP 160S. ORDERS TO RESTART CARDENE. CARDENE RESTARTED AT 10MG/HR.
--- NOTE | 2020-03-23 19:27 | NUR ---
PT PROGRESSING TOWARDS GOALS. APPITITE STILL POOR. MS TUBE REMAIN IN, OUTPUT STARTING TO SLOW.
[2020-03-24] VITALS (12 sets, daily range): BP systolic 101–124; BP diastolic 54–72
[2020-03-24 04:49] LABS: BE(vivo) -3.4 mmol/L (-2 to +3); HCO3 20.1 mmol/L (22.0-26.0); PO2 66.1 mmHg (80.0-100.0); sO2 93.9 % (92.0-98.0)
[2020-03-24 06:02] LABS: HEMATOCRIT 30.9 % (42.0-52.0); HEMOGLOBIN 10.4 gm/dL (14.0-18.0); MCH 31.1 pg (26.0-34.0); MCHC 33.5 g/dL (28.0-37.0); MCV 92.7 fL (80.0-100.0); RBC 3.33 mil/uL (4.50-6.00); RDW 13.9 % (10.5-14.5)
[2020-03-24 06:08] LABS: CALCIUM 7.7 mg/dL (8.5-10.1); CREATININE 0.8 mg/dL (0.7-1.3); POTASSIUM 3.9 mmol/L (3.5-5.1)
--- NOTE | 2020-03-24 06:11 | NUR ---
Pt making slow progress toward discharge goals. Still c/o frequently of pain in upper back, sternal incision, and headache; pt usually gives rating of 7-9. Educated pt regarding side effects of narcotics such as depressed breathing and constipation. Education will need to be reinforced. O2 increased from 2 L to 5 L due to desaturaion down to 86-88% when pt sleeping. Able to titrate Cardene gtt off by 0200; SBP remains 130-148. Monitor remains sinus rhythm withou ectopy. Urine output 650 cc for this shift. Mediastinal CT x2 patent to -20, 70 cc sero-sanguinous drainage; left plural CT x1 patent o -20, 130 cc sero-sanguinous drainage.
--- NOTE | 2020-03-24 17:35 | NUR ---
CONTINUES TO IMPROVE AND PROGRESS TOWARD GOALS. AMBULATED TWICE AROUND [facility]. RIJ INTRODUCER DC'D, TRAN DC'D, MEDIASTINAL CT X 2 REMOVED. APPETITIE IMPROVED SLIGHTLY, ATE 50% OF LUNCH AND 25% OF DINNER. TAKING PO LIQUIDS WELL. PAIN CONTROLLED WITH PO HYDROCODONE. NO NAUSEA OR CHEST PAIN. L PLEUAL CT TO 20CM SUCTION, SEROSANGUINAS FLUID. NO AIR LEAK
[2020-03-25] VITALS (20 sets, daily range): BP systolic 93–142; BP diastolic 51–90
--- NOTE | 2020-03-25 06:10 | NUR ---
PT ALERT AND ORIENTED. PT RESTED IN THE CHAIR UNTIL 5 AM THIS MORNING. PT'S PAIN WAS TREATED WITH PRN HYDROCODONE. URIE OUPUT IS ADEQUATE. PT ON 3L NC AND MINIMAL DRAINAGE OUTOUT FROM THE CHEST TUBE.CONTINUE TO MONITOR. PT PROGRESSING TOWARDS GOALS.
--- NOTE | 2020-03-25 07:52 | EKG ---
[facility] [place] [address] ELECTROCARDIOGRAM REPORT Name: SARTHAK HILL Alvaro Room #: 250-P ADM IN M.R.#: [id number] Admission: 03/22/20 Attend Phys: Juan Adler MD Discharge: Date of : 52 Report #: [id number] THIS REPORT FOR: cc: Tato Darby James L. DO Lundgren, Craig H. MD [facility] ~ THIS REPORT FOR: //name// [facility] Test Date: 2020-03-22 Test Time: 14:28:24 Pat Name: SATRHAK HILL Department: Room: 250 P Gender: M Critical Care Physician: Ken LYON : 1950 Requested By: Geo Carroll Order Number: [id number] MD: Juice Ruiz Measurements Intervals [place] Rate: 82 P: 28 [place]: 165 QRS: 18 QRSD: 117 T: -9 QT: 442 QTc: 517 Interpretive Statements Sinus rhythm Early R wave progression Nonspecific ST segment abnormality Compared to ECG 02/20/2006 07:12:45 ST segment abnormality is more pronounced Inferior Q waves are no longer present Electronically Signed On 03-25-2020 7:50:18 CDT by Juice Ruiz [email or web address] <ELECTRONICALLY SIGNED> By: Juice Ruiz MD, [facility] 03/25/20 0750 1428 1428 Juice Ruiz MD, FAC /EPI
--- NOTE | 2020-03-25 07:56 | EKG ---
[facility] [place] [address] ELECTROCARDIOGRAM REPORT Name: SARTHAK HILL Room #: 250-P ADM IN M.R.#: [id number] Admission: 03/22/20 Attend Phys: Juan Adler MD Discharge: Date of : 52 Report #: [id number] THIS REPORT FOR: cc: Tato Darby James L. DO Lundgren,Juice Motta MD [facility] ~ THIS REPORT FOR: //name// [facility] Test Date: 2020-03-23 Test Time: 07:29:48 Pat Name: SARTHAK HILL Department: Room: 250 P Gender: M Statement Clerks Manager: Graeme TRACEY : 1950 Requested By: Geo Carroll Order Number: [id number] MD: Juice Ruiz Measurements Intervals [place] Rate: 71 P: 24 [place]: 138 QRS: -10 QRSD: 110 T: 28 QT: 445 QTc: 484 Interpretive Statements Sinus rhythm Abnormal R-wave progression, early transition Inferior infarct, old Compared to ECG 02/20/2006 07:12:45 Inferior Q waves are now present ST segment abnormality is less pronounced Electronically Signed On 03-25-2020 7:54:05 CDT by Juice Ruiz [email or web address] <ELECTRONICALLY SIGNED> By: Juice Ruiz MD, FAC 03/25/20 0754 0729 0729 Juice uRiz MD, FACC /EPI
--- NOTE | 2020-03-25 08:40 | NUR ---
RD consult received for diet education. 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 Diet has advanced. Will await transfer out of ICU and address nutrition education needs.
--- NOTE | 2020-03-25 16:47 | NUR ---
INITIAL ASSESSMENT: Received consult for discharge planning. NORAH reviewed chart and spoke with hospitalist. Pt was admitted from home. Pt is s/p CABG x 4. Pt is progressing towards goals for discharge. Discharge home is anticipated in 1-2 days. NORAH spoke with pt's , Erica, via phone. Introduced role of SW. Pt is normally alert/orientated x 4. Pt and spouse live [place] a farm in [place]. Prior to admission, pt was independent with ADLs. No use of DME. 4 steps to enter the house. No steps inside. Pt's states that their bathroom has been modified for pt to have a seat in the shower. No hx of services or post-acute placement. Pt's PCP is Dr. Tato Darby. Pt's states they would like for pt to go to the outpatient cardiac rehab at [facility]. NORAH is following to assist as needed with discharge planning.
--- NOTE | 2020-03-25 17:50 | NUR ---
CABG POD #[address] AND PACER WIRES REMOVED BY BOOM SINGLETARY THIS AM. CHEST XRAY DONE FOLLOWING. REMAINED ON BEDREST FOR 1 HR FOLLOWING REMOVAL. RAD JEANA DISCONTINUED. PT UP TO CHAIR FOR MOST OF THE DAY. AMBULATED IN HALLWAY WITH PHYSICAL THERAPY X2 TODAY. O2 WEANED TO OFF AND O2 SATS STABLE ON ROOM AIR. USING I.S. 10X PER HOUR UP TO 1000ML. SOME FINE CRACKLES HEARD IN BASES. ENCOURAGED USE OF I.S., COUGHING, DEEP BREATHING. POOR APPETITE TODAY. PT COMPLAINING OF NECK AND STERNUM PAIN. HYDROCODONE GIVEN WITH GOOD PAIN RELIEF. ORDER TO TRANSFER TO CCU. REPORT CALLED TO HEIDI VILLANUEVA. CALLED AND UPDATED PT'S NIDA AND INFORMED HER OF TRANSFER. PROGRESSING TOWARDS GOALS PER PLAN OF CARE.
--- NOTE | 2020-03-25 19:12 | NUR ---
PT TRANSFER FROM ICU APPROXIMATELY 1700. ALERT X4, DENIES SOB, NON-CARDIAC PAIN TREATED PRIOR TO TRANSFER TO CARDIAC UNIT. SITTING IN CHAIR, REPORTING PAIN 4/10 THAT IS MANAGABLE. PICCO DRESSING INTACT. CALL LIGHT AND PERSONAL ITEMS IN REACH. NSR ON TELE. VS STABLE. PT UNDERSTANDS THE NEED TO CALL FOR ASSISTANCE.
[2020-03-26 04:37] VITALS: BP 120/53
--- NOTE | 2020-03-26 05:52 | NUR ---
pt resting quietly in room, vss, IS to 1000, prn pain mrds given for GATICA and incisional pain, picco dressing remains intact, pt repositions self in bed, arm elevated up on pillows, will con't to monitor per ppoc.
[2020-03-26 06:00] LABS: HEMATOCRIT 28.3 % (42.0-52.0); HEMOGLOBIN 9.6 gm/dL (14.0-18.0); MCH 31.3 pg (26.0-34.0); MCHC 33.9 g/dL (28.0-37.0); MCV 92.3 fL (80.0-100.0); RBC 3.07 mil/uL (4.50-6.00); WBC 9.2 thou/uL (4.0-11.0)
[2020-03-26 06:10] LABS: CALCIUM 7.9 mg/dL (8.5-10.1); CREATININE 0.8 mg/dL (0.7-1.3); POTASSIUM 4.1 mmol/L (3.5-5.1)
--- NOTE | 2020-03-26 07:57 | EKG ---
[facility] [place] [address] ELECTROCARDIOGRAM REPORT Name: SARTHAK HILL Room #: 218-P ADM IN M.R.#: [id number] Admission: 03/22/20 Attend Phys: Juan Adler MD Discharge: Date of : 52 Report #: [id number] THIS REPORT FOR: cc: Tato Darby James L. DO Lundgren, Craig H. MD [facility] ~ THIS REPORT FOR: //name// [facility] Test Date: 2020-03-26 Test Time: 07:13:33 Pat Name: SARTHAK HILL Department: Room: 218 P Gender: M Transitional Care Manager: Graeme TRACEY : 1950 Requested By: Geo Carroll Order Number: [id number] MD: Juice Ruiz Measurements Intervals [place] Rate: 69 P: 30 [place]: 180 QRS: -7 QRSD: 110 T: 12 QT: 427 QTc: 458 Interpretive Statements Sinus rhythm RSR' in V1 or V2, right VCD Cannot rule out inferior infarct, age indeterminate Compared to ECG 03/23/2020 07:29:48 No significant change was found Electronically Signed On 03-26-2020 7:55:39 CDT by Juice Ruiz [email or web address] <ELECTRONICALLY SIGNED> By: Juice Ruiz MD, FAC 03/26/20 0755 0713 Juice Ruiz MD, FACC /EPI
[2020-03-26 08:00] VITALS: BP 130/77
[2020-03-26 12:00] VITALS: BP 121/79
[2020-03-26 16:23] LABS: CLARITY TURBID; COLOR RED; SOURCE RIGHT CHEST; TOTAL VOLUME 60 mL
[2020-03-26 16:30] VITALS: BP 117/70
--- NOTE | 2020-03-26 16:41 | NUR ---
ASSUMED CARE 0700. ALERT X4, CHRONIC PAIN MANAGED WITH MEDICATIONS, 2L NASAL CANNULA. CHEST XRAY COMPLETED TODAY. THORASENTESIS TODAY 350ML DRAINED. DRESSINGS REMOVED TODAY AND PT HAD A SHOWER WITH OCCUPATIONAL THEARAPY. BARBARA NUR RE-APPLIED DRESSING PICCO TO STERNAL INCISION AND BAND-AIDS TO CHEST TUBU SIGHTS. NRS ON TELE. POOR NUTRIONAL INTAKE TODAY. FLUIDS ENCOURAGED. NO BM NOTED AT THIS TIME. PT CALLS FOR ASSISTANCE. ENCOURAGED IS.
[2020-03-26 16:48] LABS: BF NUCLEATED CELLS 1205; BF RBC 57497
[2020-03-26 17:28] LABS: BF MACROPHAGE 29; BF NEUTROPHILS 62
[2020-03-26 20:08] LABS: SOURCE RIGHT CHEST
[2020-03-26 20:15] VITALS: BP 131/53
[2020-03-27 00:15] VITALS: BP 146/72
[2020-03-27 04:45] VITALS: BP 124/64
--- NOTE | 2020-03-27 05:34 | NUR ---
PATIENTS CARES WERE ASSUMED AT SHIFT CHANGE. PATIENT WAS ASSESSED AND MEDS WERE PASSED. PATIENT DID C/O PAIN AND TYLENOL WAS GIVEN. UP TO VOID A FEW TIMES. PATIENT DID SLEEP ABOUT SEVEN TO EIGHT HOURS THIS SHIFT. HOURLY ROUNDS WERE MADE. THE BED IS IN A LOW AND LOCKED POSITION.
[2020-03-27 07:50] VITALS: BP 147/61
[2020-03-27 11:15] VITALS: BP 126/70
[2020-03-27 14:08] LABS: BODY FLUID AMYLASE 18 U/L (()); BODY FLUID GLUCOSE 113 mg/dL (()); BODY FLUID LDH 263 IU/L (()); BODY FLUID PROTEIN 3.3 g/dL (())
--- NOTE | 2020-03-27 18:34 | NUR ---
RECEIVED PT'S CARE AROUND 0736; PT. UP IN THE RESTHROOM; ALERT; EDUCATED ABOUT FALL PREVENTIONS; ST. UNDERSTANDING; ST. "WHEN YOU HAVE TO GO YOU HAVE TO GO"; DURING AM ASSESSMENT NO C/O PAIN; UP ON THE CHAIR; EDUCATED ABOUT THE IMPORTANCE OF CALLING BEFORE STANDING UP; REMAINED ABOUT NOT PULLING OR PUSHING; USING PILLOW; ST. UNDERSTANDING; AM MEDICATIONS GIVEN; ABLE TO WALKED WITH PT & SALES OUTFITTER REHAB NURSE; O2 TITRATE TO RA; 94%; PER PT. PT'S 02 ABOVE 90% WHILE AMBULATING; SR ON THE MONITOR; ASSESSMENT CHARGED; FOLLOWING POC; WILL PASS ON REPORT;
[2020-03-27 20:15] VITALS: BP 133/72
[2020-03-28 00:45] VITALS: BP 151/84
[2020-03-28 04:45] VITALS: BP 131/80
[2020-03-28 07:30] VITALS: BP 147/82
[2020-03-28] MEDS ORDERED: ASA81BEC PO (07:42)
[2020-03-28] MEDS ORDERED: PACERONE 200 M200 M1 PO (07:42)
--- NOTE | 2020-03-28 09:46 | NUR ---
Pt dcing home today. Cardiac rehab has made a referral to the program in [place] per pt request it to be closer to home. They will call him to coordinate his first appt. No hh or dme indicated. case closed.
[2020-03-28 09:49] VITALS: BP 149/92
--- NOTE | 2020-03-28 09:53 | NUR ---
RECEIVED PT'S CARE AROUND 0720; PT. ON BED; AOX4; DURING AM ASSESSMENT NO C/O PAIN; AM MEDICATIONS GIVEN; EDUCATED ABOUT NEW MEDICATIONS; ST. UNDERSTANDING; SR ON THE MONITOR; EDUCATED ABOUT USING URINAL TO MEASURE URINE OUTPUT; ST. UNDERSTANDING; EDUCATED ABOUT FALL PREVENTIONS; ST. UNDERSTANDING; NEEDS TO BE REMAINED ABOUT IT; EDUCATED ABOUT D/C PROCESS; ST. UNDERSTANDING; PER VIBHA D/C TAYLA DRESSING BEFORE PT D/C; PER PT. RIDE WILL ARRIVE AT 1300; ASSESSMENT CHARGED; FOLLOWING POC; MONITORING;
[2020-03-28 10:40] VITALS: BP 110/54
--- NOTE | 2020-03-28 17:08 | PATH ---
[facility] [address] [place] [address] PATHOLOGY RPT PROCEDURE Name: SARTHAK HILL Room #: 218-P [facility].#: [id number] Admission: 03/22/20 Date of : 52 Discharge: 03/28/20 Report #: [id number] Path Case #: [id number] Note [facility] Accession Number: [id number] TESTS RESULT FLAG UNITS REF RANGE LAB Clinician Provided Cytology Information No. of containers..01 Other (Miscellaneous) Source: PLEURAL DIAGNOSIS: 02 PLEURAL NEGATIVE FOR MALIGNANT EPITHELIAL CELLS. MESOTHELIAL CELLS ARE PRESENT. THIS INTERPRETATION INCLUDES EVALUATION OF A CELL BLOCK. Pathologist ICD10: 02 I25.810 Signed out by: 02 Jina Case MD, Pathologist NPI- [id number] Performed by: 01 Becki Holcomb Lineman A Class ([facility]) Gross description: 01 20 ML, CLOUDY RED/ORNG, 1 TP 1 CB /LCS 03/27/2020 1207 Local FLAG LEGEND: L-Low Normal,H-High Normal,LL-Alert Low,HH-Alert High <-Panic Low,>-Panic High,A-Abnormal,AA-Critical Abnormal Performed at: [address] [place] [address] Barrington Bess MD, [address] [address] Jina Case MD, Specimen Comment: A courtesy copy of this report has been sent to [phone], [phone] Specimen Comment: [phone] Specimen Comment: Report sent to / DR LUCIA Specimen Comment: A duplicate report has been generated due to demographic updates. Performed at: [address], [place], [place] [address] MD Barrington Bess MD Phone: [phone]
== END 2020-03-28 13:05 | disposition home or self-care (01) | DRG 235 ==
LOC: PRE 06:34 → TBA 03-22 06:10 → ICU 03-22 06:10 → PRE 03-22 10:21 → ICU 03-22 13:36 → 2N 03-25 16:54
PROVIDERS: Physician Assistant; ADMIT Surgery Vascular Surgery
PROC: 03HY32Z Insertion of Monitoring Device into Upper Artery, Percutaneous Approach (ICD-10-PCS; principal; 2020-03-22)
PROC: 5A1221Z Performance of Cardiac Output, Continuous (ICD-10-PCS; principal; 2020-03-22)
PROC: 02100Z9 Bypass Coronary Artery, One Artery from Left Internal Mammary, Open Approach (ICD-10-PCS; principal; 2020-03-22)
PROC: 021209W Bypass Coronary Artery, Three Arteries from Aorta with Autologous Venous Tissue, Open Approach (ICD-10-PCS; principal; 2020-03-22)
PROC: 06BQ4ZZ Excision of Left Saphenous Vein, Percutaneous Endoscopic Approach (ICD-10-PCS; principal; 2020-03-22)
PROC: 05HY33Z Insertion of Infusion Device into Upper Vein, Percutaneous Approach (ICD-10-PCS; 2020-03-23)
PROC: 0W993ZZ Drainage of Right Pleural Cavity, Percutaneous Approach (ICD-10-PCS; 2020-03-26)
DX: I25.10 Atherosclerotic heart disease of native coronary artery without angina pectoris (principal); J96.21 Acute and chronic respiratory failure with hypoxia; D62 Acute posthemorrhagic anemia; J91.8 Pleural effusion in other conditions classified elsewhere; E78.5 Hyperlipidemia, unspecified; I10 Essential (primary) hypertension; I48.0 Paroxysmal atrial fibrillation; E78.00 Pure hypercholesterolemia, unspecified; J44.9 Chronic obstructive pulmonary disease, unspecified; M19.90 Unspecified osteoarthritis, unspecified site; E87.70 Fluid overload, unspecified; Z79.82 Long term (current) use of aspirin; Z79.899 Other long term (current) drug therapy
CPT/HCPCS: 10078; 10081; 47000; 47001; 47002; 47297; 48888; 50010; 50249; 50409; 50456; 50498; 50668; 51301; 52131; 52259; 52314; 53327; 53358; 54118; 56455; 56524; 56525; 56526; 56527; 56528; 56531; 56534; 56668; 56760; 56898; 57093; 57116; 57167; 62110; 62950; 65003; 65047; 65090; 65120; 65135

== ENCOUNTER → 2020-05-06 | Outpatient (CLI) | payer OTHER ==
[~2020-05-06] MED LIST changes: +ASPIRIN325 PO; +BYSTOLIC20 MG PO; +ISOSORBIDE DINI30 MG PO; +LIPITOR 20 MG T20 M1 PO; +MUPIROCIN1 GM NARES; +NOVAFERRUM 5050 MG PO; +PACERONE 200 M200 M1 PO; +QUINAPRIL 20 MG20 MG PO
== END ==
LOC: SJCVC 15:17
PROVIDERS: ATTEND Internal Medicine Cardiovascular Disease
DX: R94.31 Abnormal electrocardiogram [ECG] [EKG] (principal); I45.10 Unspecified right bundle-branch block; I25.810 Atherosclerosis of coronary artery bypass graft(s) without angina pectoris; E78.00 Pure hypercholesterolemia, unspecified; I10 Essential (primary) hypertension; U07.1 COVID-19

== ENCOUNTER → 2020-08-26 | Outpatient (CLI) | payer OTHER | LOC: SJCVCIMAG 10:10 | PROVIDERS: ATTEND Internal Medicine Cardiovascular Disease | DX: I25.810 Atherosclerosis of coronary artery bypass graft(s) without angina pectoris (principal); I11.9 Hypertensive heart disease without heart failure; Z79.899 Other long term (current) drug therapy; Z87.891 Personal history of nicotine dependence ==

== ENCOUNTER → 2020-12-12 | Outpatient (CLI) | payer OTHER | LOC: SJCVCIMAG 10:36 | PROVIDERS: ATTEND Internal Medicine Cardiovascular Disease | DX: I34.0 Nonrheumatic mitral (valve) insufficiency (principal); R94.31 Abnormal electrocardiogram [ECG] [EKG]; R00.0 Tachycardia, unspecified; I25.810 Atherosclerosis of coronary artery bypass graft(s) without angina pectoris; I10 Essential (primary) hypertension; R53.83 Other fatigue; E78.00 Pure hypercholesterolemia, unspecified; R00.2 Palpitations; E78.5 Hyperlipidemia, unspecified; Z90.49 Acquired absence of other specified parts of digestive tract; Z95.5 Presence of coronary angioplasty implant and graft; Z79.82 Long term (current) use of aspirin; Z98.890 Other specified postprocedural states; Z87.891 Personal history of nicotine dependence ==

== ENCOUNTER → 2021-01-06 | Outpatient (CLI) | payer OTHER | LOC: SJCVC 13:26 | PROVIDERS: ATTEND Internal Medicine Cardiovascular Disease | DX: I45.10 Unspecified right bundle-branch block (principal); R94.31 Abnormal electrocardiogram [ECG] [EKG]; I49.3 Ventricular premature depolarization; I25.10 Atherosclerotic heart disease of native coronary artery without angina pectoris; I10 Essential (primary) hypertension; E78.00 Pure hypercholesterolemia, unspecified; R06.09 Other forms of dyspnea; Z95.1 Presence of aortocoronary bypass graft; Z87.891 Personal history of nicotine dependence; Z79.82 Long term (current) use of aspirin; Z79.899 Other long term (current) drug therapy; Z72.89 Other problems related to lifestyle; I45.19 Other right bundle-branch block ==

== ENCOUNTER → 2021-01-16 | Outpatient (CLI) | payer OTHER ==
[~2021-01-16] VITALS: Ht 172.7 cm; Wt 94.3 kg
--- NOTE | ~2021-01-16 | CATHLAB ---
[facility] [place] [address] INVASIVE PROCEDURE REPORT Name: SARTHAK HILL Room #: REG [facility]#: [id number] Admission: 01/16/21 Attend Phys: Juice Ruiz MD, Discharge: Date of : 52 Report #: [id number] THIS REPORT FOR: cc: Tato Darby James L. DO Lundgren,Juice Motta MD [facility] ~ DATE OF SERVICE: 01/16/2021 PROCEDURE: Implantable loop recorder. INDICATIONS: Syncope. DESCRIPTION OF PROCEDURE: The potential benefits and risks of the procedure were discussed with the patient who understood. Full written and informed consent was obtained. The patient's left anterior chest was prepped and draped in a sterile fashion. 1% Xylocaine was used as local anesthetic. A 1/4 inch stab incision was made over the left fourth intercostal space. A Medtronic Reveal LINQ loop recorder was inserted, serial #[id number]. A single bioabsorbable stitch was then placed to close the incision, which was then covered with a Steri-Strip and sterile gauze. He tolerated the procedure well. Thresholds were assessed and excellent. SUMMARY: Successful Medtronic Reveal LINQ loop recorder for history of syncope. By: [id number] [id number] Juice Ruiz MD, FACC /nt
[2021-01-16 07:24] VITALS: BP 114/68
[2021-01-16 08:14] VITALS: BP 119/65
== END | disposition home or self-care (01) ==
LOC: CATH 06:48
PROVIDERS: ATTEND Internal Medicine
DX: R55 Syncope and collapse (principal); I48.91 Unspecified atrial fibrillation; I10 Essential (primary) hypertension; I25.10 Atherosclerotic heart disease of native coronary artery without angina pectoris; E78.5 Hyperlipidemia, unspecified; I25.2 Old myocardial infarction; Z98.890 Other specified postprocedural states; Z79.899 Other long term (current) drug therapy; Z79.01 Long term (current) use of anticoagulants; Z98.52 Vasectomy status; Z95.1 Presence of aortocoronary bypass graft; Z90.49 Acquired absence of other specified parts of digestive tract

== ENCOUNTER → 2021-05-07 | Outpatient (CLI) | payer OTHER | LOC: SJCVC 13:42 | PROVIDERS: ATTEND Internal Medicine Cardiovascular Disease | DX: R94.31 Abnormal electrocardiogram [ECG] [EKG] (principal); I25.810 Atherosclerosis of coronary artery bypass graft(s) without angina pectoris; I10 Essential (primary) hypertension; E78.00 Pure hypercholesterolemia, unspecified; J44.9 Chronic obstructive pulmonary disease, unspecified; I71.4 Abdominal aortic aneurysm, without rupture; Z90.49 Acquired absence of other specified parts of digestive tract; Z95.1 Presence of aortocoronary bypass graft; Z95.5 Presence of coronary angioplasty implant and graft; Z79.82 Long term (current) use of aspirin; Z79.899 Other long term (current) drug therapy; Z86.16 Personal history of COVID-19; Z87.891 Personal history of nicotine dependence ==